=== PATIENT | female | born 1960 | race Hispanic/Latino ===

== ENCOUNTER 2017-12-06 16:09 | Emergency (ER) | payer OTHER ==
[~2017-12-06 16:09] MED LIST: ATROPINE SULFATE 0.1 MG/ML 10 ML SYG IVP ONE; BIVALIRUDIN 250 MG/VIAL IV ONE; CALCIUM CHLORIDE 100 MG/ML 10 ML SYG IVP ONE; EPINEPHRINE 0.1 MG/ML 10 ML SYG ONE; IOHEXOL 350 MG/ML 100ML INFUS..BTL IV ONE; IOHEXOL-350 50ML VIAL IV ONE; LIDOCAINE HCL 2% 20ML ONE; NITROGLYCERIN 5 MG/ML 10 ML VIAL IV ONE; SODIUM BICARB 8.4% 50ML SYRINGE ONE
[2017-12-06] MEDS ORDERED: NOREPINEPHRINE BITARTRATE 1 MG/1 ML ML IV ONE ×2 (16:30→16:31)
[2017-12-06] MEDS ORDERED: SODIUM CHLORIDE 0.9% 500ML 500 ML IV ONE (16:31)
[2017-12-06] MEDS ORDERED: SODIUM BICARB 50MEQ 50ML VIAL ONE (16:35)
== END 2017-12-06 19:08 | disposition home or self-care (01) ==
LOC: EDSTATUS 16:09 → EDH 16:10
DX: I46.9 Cardiac arrest, cause unspecified (principal)
CPT/HCPCS: 92950 ×3; 93005; 94770; 99291; J0171; J3490 ×5; J7040; J0461; J0583; J1644; Q9967